=== PATIENT | female | born 1995 | race Caucasian/White ===

== ENCOUNTER 2018-08-28 03:53 | Emergency (ER) | payer MEDICAID ==
[~2018-08-28] VITALS: Ht 172.7 cm; Wt 74.8 kg
[2018-08-28 04:01] VITALS: BP 145/89
== END 2018-08-28 05:53 | disposition home or self-care (01) ==
LOC: ER 03:59
DX: M79.672 Pain in left foot (principal); M79.671 Pain in right foot; W13.2XXA Fall from, out of or through roof, initial encounter; Y93.89 Activity, other specified; Y99.8 Other external cause status; Y92.89 Other specified places as the place of occurrence of the external cause
CPT/HCPCS: 73630; 81025